=== PATIENT | male | born 1995 | race Caucasian/White ===

== ENCOUNTER 2018-08-17 18:01 | Observation (INO) | payer OTHER ==
[~2018-08-17 18:01] MED LIST: Ketorolac Tromethamine 30 MG/ML VIAL ONE; Ondansetron PF 4 MG/2 ML Vial ONE; PHENYLEPHRINE-NS 100 MCG/ML 10 ML SYRINGE ONE; PROPOFOL 200 MG/20 ML VIAL ONE
[2018-08-17 18:22] LABS: #Basophils 0.1 thou/uL (0.0-0.2); #Eosinphils 0.1 thou/uL (0.0-0.7); #Lymphocytes 2.9 thou/uL (1.20-3.40); #Monocytes 0.5 thou/uL (0.11-0.59); #Neutrophils 3.4 thou/uL (1.40-6.50); %Basophils 1.4 % (0.0-1.0); %Eosinophils 1.8 % (0.0-10.0); %Lymphocytes 41.1 % (28.0-48.0); %Monocytes 7.2 % (0.0-4.0); %Neutrophils 48.5 % (31.0-61.0); Hemoglobin 15.4 g/dL (14.0-18.0); Mean Corpuscular HGB CONC 32.9 g/dL (32.0-36.0); Mean Corpuscular Hemoglobin 29.4 pg (25.0-35.0); Mean Corpuscular Volume 89.2 fL (78.0-98.0); Mean Platelet Volume 7.9 fL (7.4-10.4); Platelet Count 291 thou/uL (130-400); RBC Distribution Width 11.6 % (11.5-14.5); Red Blood Cell (RBC) Count 5.26 mill/uL (4.00-5.20)
[2018-08-17] MEDS ORDERED: HYDROmorphone 0.5 MG/0.5 ML SYRINGE ONE (18:27)
[2018-08-17 18:41] LABS: ALT (SGPT) 121 U/L (8-55); AST (SGOT) 79 U/L (5-34); Albumin 4.7 g/dL (3.5-5.0); Alkaline Phosphatase 65 U/L (Less than 750); Anion Gap 15 mmol/L (10-20); BUN (Urea Nitrogen) 17 mg/dL (8.9-20.6); Bilirubin, Total 0.5 mg/dL (0.2-1.2); Calc. Creatinine Clearance 0 mL/min (70-130); Calcium 9.8 mg/dL (7.8-10.44); Carbon Dioxide 23 mmol/L (22-29); Chloride 104 mmol/L (98-107); Estimated GFR-MDRD Greater than 90; Globulin 3.2 g/dL (2.4-3.5); Glucose 117 mg/dL (70-105); Potassium 4.2 mmol/L (3.5-5.1); Protein, Total 7.9 g/dL (6.0-8.3); Sodium 138 mmol/L (136-145)
[2018-08-17 18:45] LABS: CKMB 0.8 ng/mL (0-6.6); Troponin I Less than 0.010 ng/mL (< 0.028)
--- NOTE | 2018-08-17 18:57 | RAD ---
RIGHT KNEE TWO VIEWS: 08/17/18 HISTORY: Right knee injury. FINDINGS: Joint spaces are preserved. No displaced fracture or fluid distention in the suprapatellar bursa. IMPRESSION: No acute osseous abnormalties are demonstrated. POS: [facility]
[2018-08-17] MEDS ORDERED: Fentanyl 100 MCG/2 ML VIAL ONE ×4 (19:00→22:06)
[2018-08-17] MEDS ORDERED: CEFAZOLIN 1 GM VIAL ONE (19:17)
[2018-08-17] MEDS ORDERED: Lidocaine 1% w/Epinephrine 1:100K 20 ML VIAL ONE (19:26)
--- NOTE | 2018-08-17 19:44 | RAD ---
LEFT ANKLE TWO VIEWS: 08/17/18 HISTORY: Left ankle injury. FINDINGS: Ankle mortise is grossly intact. No fracture is apparent on these two oblique images. Soft tissue lac eration is apparent along the medial aspect of the lower leg and ankle. IMPRESSION: Limited exam due to rotation. No acute osseous abnormalities are demonstrated. POS: [facility]
--- NOTE | 2018-08-17 19:48 | RAD ---
CHEST ONE VIEW: 08/17/18 HISTORY: Chest injury. FINDINGS: The cardiac silhouette is magnified by projection. Pulmonary vasculature is unremarkable. Mediastinum is midline. No lobar consolidation or evidence of pneumothorax. The reroller hand leads overlie th e chest. IMPRESSION: No active cardiopulmonary abnormalities are demonstrated. POS: [facility]
--- NOTE | 2018-08-17 19:52 | RAD ---
LEFT FOOT TWO VIEWS: 08/17/18 HISTORY: Left foot injury. FINDINGS: There is 1.5 shaft width posterior dislocation at the first metatarsophalangeal joint with comminuted fracture involving volar base of the proximal phalanx big toe. Significant distraction of fragments. Comminuted oblique fractures of the second and third metatarsal necks are apparent. Full shaft width posterior displacement of the distal second metatarsal fragment with impaction and posterior angulati on. No evidence of intra-articular extension. Lisfranc joint not well evaluated on these oblique images. IMPRESSION: Fracture dislocation at the base of the left big toe. Significantly displaced second metatarsal neck fracture. Possible third metatarsal neck fracture. POS: [facility]
--- NOTE | 2018-08-17 19:53 | RAD ---
LEFT LOWER LEG TWO VIEWS: 08/17/18 HISTORY: Left leg injury. FINDINGS: Tibia and fibula are intact. Soft tissue laceration of the lower leg is apparent. No radiopaque forei gn bodies. IMPRESSION: No acute osseous abnormalities are demonstrated. POS: [facility]
[2018-08-17] MEDS ORDERED: Bacitracin Zinc 1 Packet ONE (20:27)
--- NOTE | 2018-08-17 20:29 | RAD ---
LEFT FOOT TWO VIEWS: 11/17/17 HISTORY: Fracture dislocation. COMPARISON: Earlier exam on the same date. FINDINGS/IMPRESSION: Fracture dislocation of the first metatarsophalangeal joint and displaced fracture of the second meta tarsal neck are unchanged in position. Third metatarsal neck fracture is now better confirmed. POS: [facility]
[2018-08-17] MEDS ORDERED: Ketorolac Tromethamine 30 MG/ML VIAL ONE (21:07)
[2018-08-17] MEDS ORDERED: Neomycin-Polymyxin 1 ML AMP ONE (21:29)
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
[2018-08-17] MEDS ORDERED: Midazolam HCl 2 mg/2 ml Vial ONE (22:05)
[2018-08-17] MEDS ORDERED: Bupivacaine PF 0.5% 30 ML VIAL ONE (23:19)
[2018-08-17] MEDS ORDERED: Bacitracin Zinc Ointment 30 gm TUBE ONE (23:25)
[2018-08-17] MEDS ORDERED: Ondansetron HCl/PF 4 MG/2 ML Vial IVP PRN (23:41)
[2018-08-17] MEDS ORDERED: Promethazine HCl 25 MG/ML VIAL SLOW IVP PRN (23:41)
[2018-08-17] MEDS ORDERED: Promethazine HCl 25 MG/ML VIAL IM PRN (23:41)
--- NOTE | 2018-08-17 23:42 | RAD ---
LEFT FOOT TWO VIEWS INTRAOPERATIVE FLUOROSCOPY 08/17/18 HISTORY: Fracture. FINDINGS/IMPRESSION: Intraoperative fluoroscopy was provided for internal fixation as performed by Dr. Black. Spot flu oroscopic images show pins transfixing the first and second metatarsophalangeal joints, in anatomic a lignment. Fluoro time: 53 seconds. POS: [facility]
[2018-08-18] MEDS ORDERED: Sodium Chloride 0.9% 1,000 ML IV SCH (00:33)
[2018-08-18] MEDS ORDERED: traMADol HCl 50 MG TAB PO PRN ×3 (00:33→06:29)
[2018-08-18] MEDS ORDERED: Dextrose 5% in Water 1,000 ML IV PRN (00:33)
[2018-08-18] MEDS ORDERED: Ondansetron PF 4 MG/2 ML Vial IVP PRN (00:33)
[2018-08-18] MEDS ORDERED: Dextrose 50% Abboject 50 ML SYRINGE SLOW IVP PRN (00:33)
[2018-08-18] MEDS ORDERED: Promethazine HCl 25 MG/ML VIAL IM PRN ×2 (00:33)
[2018-08-18] MEDS ORDERED: Ondansetron ODT 4 MG TAB PO PRN (00:33)
[2018-08-18] MEDS ORDERED: Acetaminophen 1,000 MG in Premix Bag 1 BAG IVPB SCH ×2 (00:45→06:00)
[2018-08-18] MEDS ORDERED: CEFAZOLIN/Water 2 GM/20 ML SYRINGE SLOW IVP SCH (01:00)
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
[2018-08-18 01:36] VITALS: BMI 31.1
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
[2018-08-18] MEDS ORDERED: HYDROcodone/Acetaminophen 5/325 mg Tablet PO PRN ×2 (02:07)
[2018-08-18 05:02] LABS: #Eosinphils 0.1 thou/uL (0.0-0.7); #Lymphocytes 2.7 thou/uL (1.20-3.40); #Monocytes 0.8 thou/uL (0.11-0.59); #Neutrophils 4.7 thou/uL (1.40-6.50); %Basophils 0.3 % (0.0-1.0); %Lymphocytes 32.2 % (28.0-48.0); %Neutrophils 56.5 % (31.0-61.0); Hemoglobin 12.6 g/dL (14.0-18.0); Mean Corpuscular HGB CONC 33.1 g/dL (32.0-36.0); Mean Corpuscular Hemoglobin 29.4 pg (25.0-35.0); Mean Corpuscular Volume 88.9 fL (78.0-98.0); Mean Platelet Volume 8.1 fL (7.4-10.4); Platelet Count 219 thou/uL (130-400); RBC Distribution Width 11.5 % (11.5-14.5); Red Blood Cell (RBC) Count 4.29 mill/uL (4.00-5.20); White Blood Cell (WBC) Count 8.3 thou/uL (4.8-10.8)
[2018-08-18 05:06] LABS: Anion Gap 11 mmol/L (10-20); BUN (Urea Nitrogen) 16 mg/dL (8.9-20.6); Calc. Creatinine Clearance 228 mL/min (70-130); Calcium 8.5 mg/dL (7.8-10.44); Carbon Dioxide 25 mmol/L (22-29); Chloride 105 mmol/L (98-107); Estimated GFR-MDRD Greater than 90; Glucose 102 mg/dL (70-105); Potassium 3.5 mmol/L (3.5-5.1); Sodium 137 mmol/L (136-145)
[2018-08-18] MEDS: CEFAZOLIN/Water 2 GM/20 ML SYRINGE SLOW IVP SCH ×2 (05:26→14:29)
[2018-08-18] MEDS ORDERED: Ketorolac Tromethamine 30 MG/ML VIAL IVP SCH (06:00)
[2018-08-18] MEDS ORDERED: Ibuprofen 800 MG TAB PO SCH (07:00)
[2018-08-18] MEDS: traMADol HCl 50 MG TAB PO SCH ×2 (08:20→13:47)
[2018-08-18] MEDS: Acetaminophen 500 MG TAB PO SCH ×3 (08:21→14:33)
[2018-08-18] MEDS ORDERED: Polyethylene Glycol 3350 17 GM Packet PO SCH (09:00)
[2018-08-18] MEDS ORDERED: Senokot S 8.6-50 MG TAB PO SCH (09:00)
[2018-08-18] MEDS ORDERED: Lisinopril 10 MG TAB PO SCH (09:00)
[2018-08-18] MEDS ORDERED: Famotidine 20 MG TAB PO SCH (09:00)
[2018-08-18] MEDS: HYDROcodone/Acetaminophen 10/325 mg Tablet PO PRN ×2 (11:44→15:49)
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
[2018-08-18 16:05] VITALS: BP 122/73; TEMP 97.4
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
== END 2018-08-18 16:42 | disposition home or self-care (01) ==
LOC: ERS 18:01 → SDC/OP 22:09 → SURG B 22:10
PROVIDERS: ADMIT Specialist; ATTEND Specialist
PROC: 0QSP0ZZ Reposition Left Metatarsal, Open Approach (ICD-10-PCS; principal; 2018-08-17)
PROC: 0QSP0ZZ Reposition Left Metatarsal, Open Approach (ICD-10-PCS; 2018-08-17)
PROC: 0PSV04Z Reposition Left Finger Phalanx with Internal Fixation Device, Open Approach (ICD-10-PCS; 2018-08-17)
PROC: 0QSP34Z Reposition Left Metatarsal with Internal Fixation Device, Percutaneous Approach (ICD-10-PCS; 2018-08-17)
PROC: 0PSV34Z Reposition Left Finger Phalanx with Internal Fixation Device, Percutaneous Approach (ICD-10-PCS; 2018-08-17)
PROC: 0QSR34Z Reposition Left Toe Phalanx with Internal Fixation Device, Percutaneous Approach (ICD-10-PCS; 2018-08-17)
PROC: 0SSN34Z Reposition Left Metatarsal-Phalangeal Joint with Internal Fixation Device, Percutaneous Approach (ICD-10-PCS; 2018-08-17)
DX: S92.322B Displaced fracture of second metatarsal bone, left foot, initial encounter for open fracture (principal); S92.332B Displaced fracture of third metatarsal bone, left foot, initial encounter for open fracture; S92.512B Displaced fracture of proximal phalanx of left lesser toe(s), initial encounter for open fracture; V86.56XA Driver of dirt bike or motor/cross bike injured in nontraffic accident, initial encounter; D62 Acute posthemorrhagic anemia; I10 Essential (primary) hypertension
CPT/HCPCS: 12032; 28660; 36415; 71045; 76001; 80048; 80053; 82553; 84484; 85025; 86850; 86900; 86901; 93005; 94760; 96361; 96365; 96375; 96376; G0378; G0390; G8978-GP-CJ; G8979-GP-CJ; G8980-GP-CJ; G8987-GO-CI; G8988-GO-CI; G8989-GO-CI; J0131; J0690; J1170; J1885; J2001; J2250; J2270; J2405; J2704; J3010; S0020